=== PATIENT | male | born 1935 | race Caucasian/White ===

== ENCOUNTER 2018-02-24 08:17 | Emergency (ER) | payer MEDICARE, OTHER ==
[2018-02-24 08:27] VITALS: BP 129/74
[2018-02-24] MEDS ORDERED: LIDOCAINE PATCH 5% TOP PRN (09:05)
[2018-02-24] MEDS ORDERED: ACETAMINOPHEN 325 MG TABLET PO STA (09:05)
--- NOTE | 2018-02-24 09:07 | ED Physician Documentation ---
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 denies: Neck pain Neurologic: denies: Focal weakness, Numbness, Headache Endocrine: denies: Easy bruising / bleeding PD PAST MEDICAL HISTORY - Past Medical History Past Medical History: Yes Cardiovascular: Hypertension, High cholesterol Other Past Medical History: Prostate Ca, Left kidney and Renal Ca, seeing [facility] for blood work, scans - Past Surgical History Past Surgical History: Yes - Present Medications Home Medications: Ambulatory Orders Medication Instructions Recorded Confirmed Acetaminophen [Tylenol] 650 mg PO Q6H PRN 02/24/18 02/24/18 Lidocaine Patch 5% [Lidoderm Patch] 1 each TOP DAILY PRN #10 patch 02/24/18 Losartan/Hydrochlorothiazide 1 tab ORAL DAILY 02/24/18 02/24/18 [Losartan-Hctz 100-12.5 mg Tab] Pravastatin [Pravachol] 10 mg PO DAILY 02/24/18 02/24/18 - Allergies Allergies/Adverse Reactions: Allergies Allergy/AdvReac Type Severity Reaction Status Date / Time No Known Drug Allergies Allergy Verified 02/24/18 08:27 - Social History Does the pt smoke?: No Smoking Status: Never smoker Does the pt drink ETOH?: No Does the pt have substance abuse?: No - Immunizations Immunizations are current?: Yes PD ED PE NORMAL - Vitals Vital signs reviewed: Yes - HEENT HEENT: Atraumatic - Neck Neck: No bony TTP - Cardiac Cardiac: RRR - Respiratory Respiratory: No respiratory distress, Clear bilaterally - Extremities Extremities: Other (L shoulder s deformity, no clavicle def or TTP, TTP ant up, lateral shoulder, pain with ROM including int ext rotation, EBD and ext, worse with active less with passive, MSV intact) - Neuro Neuro: Alert and oriented X 3, plush brusher 2-12 intact, No motor deficit, No sensory deficit Eye Opening: Spontaneous Motor: Obeys Commands Verbal: Oriented GCS Score: 15 Results - Vitals Vitals: Vital Signs - 24 hr 02/24/18 08:24 Temperature 36 C L Heart Rate 65 Respiratory 16 Rate Blood Pressure 129/74 O2 Saturation 100 Oxygen O2 Source Room air - Rads (name of study) shoulder Radiology: See rad report (djd) PD MEDICAL DECISION MAKING - ED course ED course: MSE performed injury identified - shoulder contusion but no life limb threatening issue requiring admit surgery etc identified and feel pt stable and safe to dc home - Sepsis Event Vital Signs: Vital Signs - 24 hr 02/24/18 08:24 Temperature 36 C L Heart Rate 65 Respiratory 16 Rate Blood Pressure 129/74 O2 Saturation 100 Oxygen O2 Source Room air Departure - Departure Disposition: 01 Home, Self Care Clinical Impression: Contusion of shoulder, left Qualifiers: Encounter type: initial encounter Qualified Code(s): S40.012A - Contusion of left shoulder, initial encounter Instructions: ED Contusion Shoulder Prescriptions: Lidocaine Patch 5% [Lidoderm Patch] 1 each TOP DAILY PRN #10 patch PRN Reason: Pain Comments: The xray showed arthritis but no fracture or dislocation Wear the sling as needed for comfort Several times a day you need to take the sling off to do some gentle range of motion to prevent scar tissue and "frozen joint" Tylenol and lidocaine patches as needed for pain Ice to decrease inflammation pain and swelling If not better in 2 weeks, please talk to your PMD about further imaging and getting physical therapy
--- NOTE | 2018-02-24 09:28 | XRAY Report ---
Procedure Date: 02/24/2018 Accession Number: [id number] / [id number] Procedure: XR - Shoulder 3 View LT CPT Code: FULL RESULT: EXAM: LEFT SHOULDER RADIOGRAPHY EXAM DATE: 02/24/2018 08:59 AM. CLINICAL HISTORY: GLF yesterday, pain limited ROM. COMPARISON: None. TECHNIQUE: 4 views. FINDINGS: Bones: Calcific tendinitis No fracture or bone lesion. Joints: AC joint hypertrophy. Soft tissues: The visualized hemithorax is unremarkable. No soft tissue swelling. IMPRESSION: 1. 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
== END 2018-02-24 09:57 | disposition home or self-care (01) ==
LOC: ED 08:17
DX: S40.012A Contusion of left shoulder, initial encounter (principal); M19.012 Primary osteoarthritis, left shoulder; W01.0XXA Fall on same level from slipping, tripping and stumbling without subsequent striking against object, initial encounter
CPT/HCPCS: 73030; 99283; A9270

== ENCOUNTER 2018-04-14 10:07 | Emergency (ER) | payer MEDICARE, OTHER ==
--- NOTE | 2018-04-14 11:03 | ED Physician Documentation ---
PD HPI LOWER EXT INJURY - Stated complaint Stated Complaint: STEPPED ON NAIL/FT INJURY - Chief complaint Chief Complaint: Laceration - History obtained from History obtained from: Patient - History of Present Illness PD HPI LOW EXT INJURY LOCATION: Right, Foot Type of injury: Puncture wound (stepped on nail 2 days ago. Some tenderness still. No redness nor drainage.) Timing - onset: How many days ago (2) Timing - duration: Days (2) Timing - details: Abrupt onset, Still present Worsened by: Palpating, Other (walking) Associated symptoms: Swelling (mild), Other (some local tenderness). No: Weakness, Numbness Similar symptoms before: Has not had sx before Recently seen: Not recently seen Review of Systems Constitutional: denies: Fever, Chills Neurologic: denies: Focal weakness, Numbness PD PAST MEDICAL HISTORY - Past Medical History Cardiovascular: Hypertension, High cholesterol - Past Surgical History Past Surgical History: Yes - Present Medications Home Medications: Ambulatory Orders Medication Instructions Recorded Confirmed Acetaminophen [Tylenol] 650 mg PO Q6H PRN 02/24/18 02/24/18 Lidocaine Patch 5% [Lidoderm Patch] 1 each TOP DAILY PRN #10 patch 02/24/18 Losartan/Hydrochlorothiazide 1 tab ORAL DAILY 02/24/18 02/24/18 [Losartan-Hctz 100-12.5 mg Tab] Pravastatin [Pravachol] 10 mg PO DAILY 02/24/18 02/24/18 - Allergies Allergies/Adverse Reactions: Allergies Allergy/AdvReac Type Severity Reaction Status Date / Time No Known Drug Allergies Allergy Verified 04/14/18 10:18 - Social History Does the pt smoke?: No Smoking Status: Never smoker Does the pt drink ETOH?: No Does the pt have substance abuse?: No - Immunizations Immunizations are current?: Yes PD ED PE NORMAL - Vitals Vital signs reviewed: Yes - General General: Alert and oriented X 3, No acute distress, Well developed/nourished - Derm Derm: Normal color, Warm and dry - Extremities Extremities: Other (bottom of right foot with sealed puncture site. No redness nor warmth. Mild swelling. No draiange.) Results - Vitals Vitals: Oxygen O2 Source Room air PD MEDICAL DECISION MAKING - ED course Complexity details: reviewed results, considered differential (no signs of infection at this time. ), d/w patient - Sepsis Event Vital Signs: Oxygen O2 Source Room air Departure - Departure Disposition: 01 Home, Self Care Clinical Impression: Puncture wound of plantar aspect of foot Qualifiers: Encounter type: initial encounter Laterality: right Qualified Code(s): S91.331A - Puncture wound without foreign body, right foot, initial encounter Condition: Stable Instructions: ED Wound Puncture General Comments: At this point there does not appear to be any infection. Recheck if there has increasing redness tenderness or any discharge over the next couple of days or at that point start the doxycycline antibiotic. Discharge Date/Time: 04/14/18 12:36
[2018-04-14] MEDS ORDERED: TETANUS/DIPHTHERIA/PERTUSSIS 0.5 ML SYRINGE IM ONE (12:00)
[2018-04-14 12:33] VITALS: BP 128/56
== END 2018-04-14 12:36 | disposition home or self-care (01) ==
LOC: ED 10:07
DX: S91.331A Puncture wound without foreign body, right foot, initial encounter (principal); W45.0XXA Nail entering through skin, initial encounter; Y93.01 Activity, walking, marching and hiking; I10 Essential (primary) hypertension
CPT/HCPCS: 90471; 99282; 99283

== ENCOUNTER 2020-07-28 15:17 | Outpatient (CLI) | payer MEDICARE, OTHER ==
--- NOTE | 2020-07-28 17:20 | CT Report ---
PROCEDURE: Sinuses INDICATIONS: CHRONIC PANSINUSITIS TECHNIQUE: Noncontrast 3.0 mm axial images acquired from the frontal sinuses to the mid-sella, with coronal and sagittal reformats. For radiation dose reduction, the following was used: automated exposure control , adjustment of mA and/or kV according to patient size. COMPARISON: None. FINDINGS: Image quality: Excellent. Sinuses: There is minimal bilateral maxillary sinus mucosal thickening. Minimal scattered areas of mucosal thickening are present within the sphenoid sinuses. Mild mucosal thickening is present within the frontal sinuses as well as mild to moderate scattered mucosal thickening within the ethmoid air cells. No fluid levels or mucus retention cysts are identified. Ostiomeatal Complexes: Ostiomeatal complexes are patent. However, there is marked narrowing on the r ight secondary to mucosal thickening, minimal on the left. No Sophia cells. Miscellaneous: Visualized intra-orbital contents are normal. No diana bullosa. No nasal septal de viation. Bilateral middle paradoxical turbinates are noted. IMPRESSION: 1. Pansinus mucosal thickening most notable in the ethmoid air cells. 2. Patent ostiomeatal complexes with narrowing on the right secondary to mucosal thickening. Reviewed by: Sparkle Nair MD on 07/28/2020 5:19 PM PST Approved by: Sparkle Nair MD on 07/28/2020 5:19 PM PST Station ID: [id number]
== END 2020-07-28 15:18 | disposition home or self-care (01) ==
LOC: DI 15:17
PROVIDERS: ATTEND Otolaryngology
DX: J32.4 Chronic pansinusitis (principal)
CPT/HCPCS: 70486

== ENCOUNTER 2022-07-31 12:29 | Emergency (ER) | payer MEDICARE, OTHER ==
[2022-07-31 13:12] VITALS: BP 140/70
[2022-07-31 13:34] LABS: BASOPHILS % (AUTO) 0.5 %; EOSINOPHILS # (AUTO) 0.4 10^3/uL (0.0-0.7); EOSINOPHILS % (AUTO) 5.3 %; HGB - HEMOGLOBIN 14.3 g/dL (14.0-18.0); LYMPHOCYTES # (AUTO) 1.7 10^3/uL (1.5-3.5); LYMPHOCYTES % (AUTO) 22.5 %; MEAN CORPUSCULAR HGB CONC 33.3 g/dL (32.0-36.0); MEAN CORPUSCULAR VOLUME 93.1 fL (80.0-94.0); MEAN PLATELET VOLUME 9.2 fL (7.4-11.4); MONOCYTES # (AUTO) 0.6 10^3/uL (0.0-1.0); MONOCYTES % (AUTO) 7.4 %; NEUTROPHILS # (AUTO) 4.8 10^3/uL (1.5-6.6); PLT - PLATELET COUNT 249 10^3/uL (130-450); RED BLOOD COUNT 4.62 10^6/uL (4.70-6.10); RED CELL DISTRIBUTION WIDTH 12.1 % (12.0-15.0); WHITE BLOOD COUNT 7.5 x10^3/uL (4.8-10.8)
[2022-07-31 13:42] LABS: ALBUMIN/GLOBULIN RATIO 1.1 (1.0-2.2); BILIRUBIN,TOTAL 0.7 mg/dL (0.2-1.0); CALCIUM 9.4 mg/dL (8.5-10.3); CREATININE 1.1 mg/dL (0.6-1.2); POTASSIUM 4.4 mmol/L (3.5-5.0); TOTAL PROTEIN 7.5 g/dL (6.7-8.2)
== END 2022-07-31 15:40 | disposition left against medical advice (07) ==
LOC: ED 12:29
DX: Z53.21 Procedure and treatment not carried out due to patient leaving prior to being seen by health care provider (principal)
CPT/HCPCS: 36415; 80053; 83690; 85025